=== PATIENT | female | born 1990 | race Caucasian/White ===

== ENCOUNTER 2018-03-24 19:04 | Emergency (ER) | payer SELFPAY ==
[2018-03-24] MEDS ORDERED: HALOPERIDOL LACTATE INJ 5 MG/1 ML VIAL IM ONE (20:09)
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
[2018-03-24 20:22] LABS: ABSOLUTE BASOPHILS # (AUTO) 0.1 10^3/uL (0.0-0.2); ABSOLUTE EOSINOPHILS # (AUTO) 0.1 10^3/uL (0.0-0.6); ABSOLUTE MONOCYTES (AUTO) 0.8 10^3/uL (0.1-1.4); ABSOLUTE NEUT (AUTO) 6.8 10^3/uL (1.7-8.2); BASOPHILS % (AUTO) 0.6 % (0-2); EOSINOPHILS % (AUTO) 0.8 % (0-6); HEMATOCRIT 40.9 % (36.0-47.0); LYMPHOCYTES % (AUTO) 20.5 % (13-45); MEAN CORPUSCULAR HEMOGLOBIN 32.3 pg (27.0-33.4); MEAN CORPUSCULAR HGB CONC 34.2 g/dL (32.0-36.0); MEAN CORPUSCULAR VOLUME 94 fl (80-97); MONOCYTES % (AUTO) 8.1 % (3-13); PLATELET COUNT 253 10^3/uL (150-450); RED BLOOD COUNT 4.33 10^6/uL (3.72-5.28); RED CELL DISTRIBUTION WIDTH 13.9 % (11.5-14.0); TOTAL CELLS COUNTED % (AUTO) 100 %; WHITE BLOOD COUNT 9.7 10^3/uL (4.0-10.5)
[2018-03-24 20:43] LABS: ALANINE AMINOTRANSFERASE 27 U/L (9-52); ALKALINE PHOSPHATASE 81 U/L (38-126); ANION GAP 14 (5-19); ASPARTATE AMINO TRANSFERASE 23 U/L (14-36); BILIRUBIN,DIRECT 0.2 mg/dL (0.0-0.4); BILIRUBIN,TOTAL 0.9 mg/dL (0.2-1.3); BLOOD UREA NITROGEN 16 mg/dL (7-20); CARBON DIOXIDE 19 mmol/L (22-30); CHLORIDE 106 mmol/L (98-107); CREATINE KINASE 151 U/L (30-135); GLUCOSE 91 mg/dL (75-110); POTASSIUM 4.2 mmol/L (3.6-5.0); SODIUM 138.9 mmol/L (137-145); TOTAL PROTEIN 7.4 g/dL (6.3-8.2)
[2018-03-24 20:44] LABS: ACETAMINOPHEN < 10 ug/mL (10-30); ALCOHOL < 10 mg/dL (NONE DETECTED); SALICYLATE < 1.0 mg/dL (2.0-20.0)
[2018-03-24 21:18] VITALS: BP 124/77
[2018-03-25 02:42] LABS: APPEARANCE,URINE SLIGHTLY-CLOUDY; BILIRUBIN,URINE SMALL (NEGATIVE); COLOR,URINE DARK YELLOW; GLUCOSE, URINE NEGATIVE (NEGATIVE); KETONES,URINE 20 mg/dL (NEGATIVE); LEUKOCYTE ESTERASE,URINE NEGATIVE (NEGATIVE); NITRITE,URINE NEGATIVE (NEGATIVE); PROTEIN,URINE 100 mg/dL (NEGATIVE); URINE SPECIFIC GRAVITY 1.035
--- NOTE | 2018-03-25 02:42 | RADIOLOGY REPORT (SQ) ---
EXAM DESCRIPTION: CT HEAD WITHOUT IV CONTRAST COMPLETED DATE/TME: 03/25/2018 01:49 CLINICAL HISTORY: 27 years Female, aktered mental status COMPARISON: None. TECHNIQUE: No contrast. Coronal and sagittal reformat. This exam was performed according to our departmental dose-optimization program, which includes automated exposure control, adjustment of the mA and/or kV according to patient size and/or use of iterative reconstruction technique. FINDINGS: No hemorrhage or infarct. No mass, mass effect, or midline shift. Brain and extra-axial structures appear intact. IMPRESSION: Normal CT of the head.
[2018-03-25 03:11] LABS: URINE AMPHETAMINES SCREEN NEGATIVE; URINE BARBITURATES SCREEN NEGATIVE; URINE BENZODIAZEPINES SCREEN NEGATIVE; URINE MARIJUANA (THC) SCREEN NEGATIVE; URINE METHADONE SCREEN NEGATIVE; URINE PHENCYCLIDINE SCREEN NEGATIVE
[2018-03-25 03:18] LABS: URINE COCAINE SCREEN NEGATIVE
--- NOTE | 2018-03-25 07:55 | EKG REPORT ---
SEVERITY:- BORDERLINE ECG - SINUS RHYTHM BORDERLINE T ABNORMALITIES, INFERIOR LEADS : Confirmed by: Keegan Blake MD 25-Mar-2018 07:54:12
--- NOTE | 2018-03-25 09:18 | PSYCHOLOGICAL NOTE ---
Psych Note - Psych Note Date seen by psych provider: 03/25/18 Time seen by psych provider: 07:35 Psych Note: Reason for Consult: AMS Patient's mother, Jennifer ([phone])- per chart review Patient has another chart [id number] Patient was seen by the clinician and department during her 01/18/2018 and 09/16/2017 ED visits. Patient's presentation is similar to previous presentation. Patient is unable or unwilling to engage and demonstrates mood liability (ie moves between crying, smiling or odd times of random laughing, flat affect). Patient does report understanding she is in [facility] and states she "thinks she was here a few months ago." Patient does not make eye contact and when she does speak there is a noted significant delay in responses with never quiet speech; difficult to hear. Patient shuts down when asked her name and starts crying. Clinician notes the patient was restrained (from approximately 1am until 5am) after attempting to elope. Patient was not violent at anytime. Medication Recommendation from [facility]'s contracted psychiatric prescriber, Dr. Joie MD included: 1. Please add Zyprexa 10 mg twice daily 2. please continue Cogentin 1 mg daily Diagnosis: 296.80 (F31.9) Unspecified Bipolar Related Disorder 309.81 (F43.10) Post Traumatic Stress Disorder by History Impression/plan: Patient is recommended for IVC. Patient has had previous events of similar presentation; this is not her baseline. Medication recommendations have been provided. Patient has been accepted by [facility]; transportation was requested. Dr. Su was consulted and care management of this patient; attending physicians in agreement with her conditions and disposition.
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
== END 2018-03-25 12:29 ==
LOC: ER 19:04 → EDBD 19:04 → ER 03-25 12:29
DX: F23 Brief psychotic disorder (principal)
CPT/HCPCS: 93005; 99285; 96372; 36415; 82375; 80307 ×4; 82550; 84703; 85025; 80053; 81001; 70450; 93010; J1630

== ENCOUNTER 2018-09-15 18:23 | Emergency (ER) | payer SELFPAY ==
[2018-09-15] MEDS ORDERED: BENZTROPINE MESYLATE 1 MG TABLET PO ONE (19:07)
[2018-09-15] MEDS: OLANZAPINE 5 MG TAB.RAPDIS PO ONE (19:40)
[2018-09-15 19:41] LABS: ABSOLUTE BASOPHILS # (AUTO) 0.1 10^3/uL (0.0-0.2); ABSOLUTE LYMPHOCYTES (AUTO) 1.1 10^3/uL (0.5-4.7); ABSOLUTE MONOCYTES (AUTO) 0.8 10^3/uL (0.1-1.4); ABSOLUTE NEUT (AUTO) 8.9 10^3/uL (1.7-8.2); BASOPHILS % (AUTO) 0.5 % (0-2); EOSINOPHILS % (AUTO) 0.4 % (0-6); HEMATOCRIT 37.1 % (36.0-47.0); HEMOGLOBIN 12.7 g/dL (12.0-15.5); LYMPHOCYTES % (AUTO) 10.2 % (13-45); MEAN CORPUSCULAR HEMOGLOBIN 32.3 pg (27.0-33.4); MEAN CORPUSCULAR HGB CONC 34.2 g/dL (32.0-36.0); MEAN CORPUSCULAR VOLUME 95 fl (80-97); MONOCYTES % (AUTO) 7.3 % (3-13); PLATELET COUNT 260 10^3/uL (150-450); RED BLOOD COUNT 3.93 10^6/uL (3.72-5.28); RED CELL DISTRIBUTION WIDTH 14.9 % (11.5-14.0); SEGMENTED NEUTROPHILS % (AUTO) 81.6 % (42-78); TOTAL CELLS COUNTED % (AUTO) 100 %
[2018-09-15 20:01] LABS: ALANINE AMINOTRANSFERASE 13 U/L (9-52); ALBUMIN 4.8 g/dL (3.5-5.0); ALKALINE PHOSPHATASE 65 U/L (38-126); ANION GAP 10 (5-19); ASPARTATE AMINO TRANSFERASE 20 U/L (14-36); BILIRUBIN,DIRECT 0.3 mg/dL (0.0-0.4); BILIRUBIN,TOTAL 0.5 mg/dL (0.2-1.3); BLOOD UREA NITROGEN 13 mg/dL (7-20); CARBON DIOXIDE 23 mmol/L (22-30); CHLORIDE 109 mmol/L (98-107); GLUCOSE 135 mg/dL (75-110); POTASSIUM 3.9 mmol/L (3.6-5.0); TOTAL PROTEIN 7.4 g/dL (6.3-8.2)
[2018-09-15 20:03] LABS: ACETAMINOPHEN < 10 ug/mL (10-30); ALCOHOL < 10 mg/dL (NONE DETECTED); SALICYLATE < 1.0 mg/dL (2.0-20.0)
--- NOTE | 2018-09-15 20:33 | EKG REPORT ---
SEVERITY:- BORDERLINE ECG - SINUS RHYTHM PROBABLE LEFT ATRIAL ABNORMALITY : Confirmed by: Randall Mejias 15-Sep-2018 20:32:23
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
[2018-09-16 04:52] LABS: APPEARANCE,URINE SLIGHTLY-CLOUDY; BILIRUBIN,URINE NEGATIVE (NEGATIVE); COLOR,URINE AMBER; GLUCOSE, URINE NEGATIVE (NEGATIVE); KETONES,URINE 20 mg/dL (NEGATIVE); LEUKOCYTE ESTERASE,URINE TRACE (NEGATIVE); NITRITE,URINE NEGATIVE (NEGATIVE); PROTEIN,URINE 100 mg/dL (NEGATIVE); URINE SPECIFIC GRAVITY 1.034
[2018-09-16 05:08] LABS: URINE AMPHETAMINES SCREEN NEGATIVE; URINE BENZODIAZEPINES SCREEN NEGATIVE; URINE COCAINE SCREEN NEGATIVE; URINE MARIJUANA (THC) SCREEN NEGATIVE; URINE METHADONE SCREEN NEGATIVE; URINE PHENCYCLIDINE SCREEN NEGATIVE
[2018-09-16 05:09] LABS: URINE BARBITURATES SCREEN NEGATIVE
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
--- NOTE | 2018-09-16 11:01 | ER Document Report ---
Doctor's Note Notes: 09/16/18 10:59 Rounds: Chart reviewed and patient interviewed. Initially patient would not talk to me, but then opened up and began to answer questions. Patient has a history of bipolar disorder and PTSD. Brought in because she is been walking and out of moving traffic. Reportedly has not slept for a couple of days. Laly decker has been seen here previously for similar presentation. Vital signs are all normal. Lab studies are normal. Patient appears to be medically stable for transfer or discharge. Pamela Winkler MD 09/16/18 16:23 Patient has departed the ED. Law enforcement came to pick her up to transfer her. Patient was ambulatory. In no distress. Patient appeared to be medically stable for transfer. Pamela Winkler MD
[2018-09-16] MEDS ORDERED: OLANZAPINE 5 MG TAB.RAPDIS PO ONE (14:55)
[2018-09-16 15:37] VITALS: BP 105/78
[2018-09-17 08:37] LABS: HEPATITS B SURFACE ANTIGEN Negative (Negative)
[2018-09-17 19:01] LABS: HEPATITIS C VIRUS ANTIBODY >11.0 s/co ratio (0.0-0.9)
== END 2018-09-16 14:59 ==
LOC: ER 18:23
DX: R41.82 Altered mental status, unspecified (principal); F31.9 Bipolar disorder, unspecified; F43.10 Post-traumatic stress disorder, unspecified
CPT/HCPCS: 93005; 99285; 36415; 80307 ×4; 82140; 84703; 85025; 80053; 81001; 86701; 80074; 93010; J3490 ×2

== ENCOUNTER 2018-10-06 12:12 | Emergency (ER) | payer SELFPAY ==
[2018-10-06 13:38] LABS: ABSOLUTE BASOPHILS # (AUTO) 0.1 10^3/uL (0.0-0.2); ABSOLUTE EOSINOPHILS # (AUTO) 0.1 10^3/uL (0.0-0.6); ABSOLUTE LYMPHOCYTES (AUTO) 1.7 10^3/uL (0.5-4.7); ABSOLUTE MONOCYTES (AUTO) 0.7 10^3/uL (0.1-1.4); BASOPHILS % (AUTO) 0.9 % (0-2); EOSINOPHILS % (AUTO) 0.8 % (0-6); HEMATOCRIT 39.1 % (36.0-47.0); HEMOGLOBIN 13.4 g/dL (12.0-15.5); MEAN CORPUSCULAR HGB CONC 34.3 g/dL (32.0-36.0); MEAN CORPUSCULAR VOLUME 93 fl (80-97); MONOCYTES % (AUTO) 6.2 % (3-13); PLATELET COUNT 337 10^3/uL (150-450); RED BLOOD COUNT 4.19 10^6/uL (3.72-5.28); SEGMENTED NEUTROPHILS % (AUTO) 76.1 % (42-78); TOTAL CELLS COUNTED % (AUTO) 100 %; WHITE BLOOD COUNT 10.5 10^3/uL (4.0-10.5)
--- NOTE | 2018-10-06 13:39 | ER Document Report ---
ED General - General Chief Complaint: Psych Problem Stated Complaint: IVC Time Seen by Provider: 10/06/18 13:22 Mode of Arrival: Stretcher Information source: Law Enforcement, Emergency Med Personnel, [facility] Records Cannot obtain history due to: Uncooperative Notes: HPI; 28-year-old female with bipolar disorder, PTSD presents in police custody after being found wandering in traffic and appearing confused. Per the officer who has accompanied the patient she states that the patient has refused to give her any information. Per the IVC taken out by Shi Zapata it is reported that the patient is having hallucinations and saying that she is possess. Per the IVC patient has not been taking her medications. Patient will not make eye contact with me, answer any questions and is pacing around the room. Psych note; Pt. presents to the ED with CC of hallucinations and mental instability. Per [facility] pt. was wandering in the road at their arrival. Pt. is RXed psych medications to which she has not been taking. Pt. swaying back and forth on her feet and bouncing her knees. Pt. is breathing e/u and in NAD at this time. Pt. does not answer questions when directly asked by deputy. Patient refused to engage with clinician. This patient was see by this clinici an and department during her 03/26/2016, 01/15/2017,09/16/2017, 03/25/2018 and 09/16/2018 ED visits. Patient's presentation is similar to previous presentation. Patient was sent inpatient psychiatric treatment this year to [facility] 09/16/2018 and [facility] on 03/25/2018. TRAVEL OUTSIDE OF THE [place] IN LAST 30 DAYS: No - HPI Onset: Just prior to arrival - Related Data Allergies/Adverse Reactions: No Known Allergies Allergy (Verified 09/19/18 12:59) Past Medical History - General Information source: Law Enforcement, [facility] Records Cannot obtain history due to: Uncooperative - Social History Smoking Status: Unknown if Ever Smoked Family History: None, Other Patient has suicidal ideation: Yes Patient has homicidal ideation: Yes Renal/ Medical History: Denies: Hx Peritoneal Dialysis - Immunizations Immunizations up to date: Yes Hx Diphtheria, Pertussis, Tetanus Vaccination: Yes Review of Systems - Review of Systems -: Yes ROS unobtainable due to patient's medical condition Physical Exam - Vital signs Vitals: Temp Pulse Resp BP Pulse Ox 98.1 F 67 18 130/89 H 100 10/06/18 12:18 10/06/18 12:18 10/06/18 12:18 10/06/18 12:18 10/06/18 12:18 - Notes Notes: PHYSICAL EXAMINATION: GENERAL: Unkept, tearful HEAD: Atraumatic, normocephalic. EYES: Pupils equal round and reactive to light, extraocular movements intact, conjunctiva are normal. ENT: Nares patent, oropharynx clear without exudates. Moist mucous membranes. NECK: Normal range of motion, supple without lymphadenopathy LUNGS: Breath sounds clear to auscultation bilaterally and equal. No wheezes rales or rhonchi. HEART: Regular rate and rhythm without murmurs ABDOMEN: Soft, nontender, nondistended abdomen. No guarding, no rebound. No masses appreciated. Female : deferred Musculoskeletal: Normal range of motion, no pitting or edema. No cyanosis. NEUROLOGICAL: Alert PSYCH: Tearful, fidgeting, does not make eye contact SKIN: Multiple healed linear scars of the forearms bilaterally Course - Re-evaluation Re-evalutation: 10/06/18 17:43 Laboratory 10/06/18 10/06/18 10/06/18 13:19 13:19 13:19 WBC 10.5 RBC 4.19 Hgb 13.4 Hct 39.1 MCV 93 MCH 32.0 MCHC 34.3 RDW 14.0 Plt Count 337 Seg Neutrophils % 76.1 Lymphocytes % 16.0 Monocytes % 6.2 Eosinophils % 0.8 Basophils % 0.9 Absolute Neutrophils 8.0 Absolute Lymphocytes 1.7 Absolute Monocytes 0.7 Absolute Eosinophils 0.1 Absolute Basophils 0.1 Sodium 140.1 Potassium 4.1 Chloride 103 Carbon Dioxide 24 Anion Gap 13 BUN 9 Creatinine 0.69 Est GFR ( Amer) > 60 Est GFR (Non-Af Amer) > 60 Glucose 91 Calcium 10.0 Total Bilirubin 0.8 Direct Bilirubin 0.4 Neonat Total Bilirubin Not Reportable Neonat Direct Bilirubin Not Reportable Neonat Indirect Bili Not Reportable AST 24 ALT 14 Alkaline Phosphatase 82 Total Protein 7.8 Albumin 5.1 H Serum HCG, Qual NEGATIVE Salicylates < 1.0 L Acetaminophen < 10 L Serum Alcohol < 10 Temp Pulse Resp BP Pulse Ox 98.1 F 67 18 130/89 H 100 10/06/18 12:18 10/06/18 12:18 10/06/18 12:18 10/06/18 12:18 10/06/18 12:18 HPI; 28-year-old female with bipolar disorder, PTSD presents in police custody after being found wandering in traffic and appearing confused. Per the officer who has accompanied the patient she states that the patient has refused to give her any information. Per the IVC taken out by Shi Zapata it is reported that the patient is having hallucinations and saying that she is possess. Per the IVC patient has not been taking her medications. Patient will not make eye contact with me, answer any questions and is pacing around the room. Vital signs reviewed and within normal limits. Patient is completely uncooperative. Psych note; Pt. presents to the ED with CC of hallucinations and mental instability. Per [facility] pt. was wandering in the road at their arrival. Pt. is RXed psych medications to which she has not been taking. Pt. swaying back and forth on her feet and bouncing her knees. Pt. is breathing e/u and in NAD at this time. Pt. does not answer questions when directly asked by deputy. Patient refused to engage with clinician. This patient was see by this clinician and department during her 03/26/2016, 01/15/2017,09/16/2017, 03/25 and 09/16/2018 ED visits. Patient's presentation is similar to previous presentation. Patient was sent inpatient psychiatric treatment this year to [facility] 09/16/2018 and [facility] on 03/25/2018. 10/06/18 17:54 Medication recommendations include Zyprexa 10 mg twice daily and Cogentin 1 mg daily. Behavioral health to reevaluate tomorrow. - Vital Signs Vital signs: Temp Pulse Resp BP Pulse Ox 98.1 F 67 18 130/89 H 100 10/06/18 12:18 10/06/18 12:18 10/06/18 12:18 10/06/18 12:18 10/06/18 12:18 - Laboratory Result Diagrams: 10/06/18 13:19 10/06/18 13:19 Laboratory results interpreted by me: 10/06/18 13:19 Albumin 5.1 H Salicylates < 1.0 L Acetaminophen < 10 L Discharge - Discharge Clinical Impression: Hallucination Bipolar disorder Qualifiers: Active/Remission status: currently active Current bipolar episode type: mixed Current episode severity: unspecified Qualified Code(s): F31.60 - Bipolar disorder, current episode mixed, unspecified Condition: Good Disposition: OTHER Forms: Elevated Blood Pressure
[2018-10-06 14:02] LABS: ALBUMIN 5.1 g/dL (3.5-5.0); ALKALINE PHOSPHATASE 82 U/L (38-126); ANION GAP 13 (5-19); ASPARTATE AMINO TRANSFERASE 24 U/L (14-36); BILIRUBIN,DIRECT 0.4 mg/dL (0.0-0.4); BILIRUBIN,TOTAL 0.8 mg/dL (0.2-1.3); BLOOD UREA NITROGEN 9 mg/dL (7-20); CARBON DIOXIDE 24 mmol/L (22-30); CHLORIDE 103 mmol/L (98-107); GLUCOSE 91 mg/dL (75-110); POTASSIUM 4.1 mmol/L (3.6-5.0); TOTAL PROTEIN 7.8 g/dL (6.3-8.2)
[2018-10-06 14:06] LABS: ACETAMINOPHEN < 10 ug/mL (10-30); ALCOHOL < 10 mg/dL (NONE DETECTED); SALICYLATE < 1.0 mg/dL (2.0-20.0)
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
[2018-10-06] MEDS ORDERED: OLANZAPINE INJ/PF 10 MG SDV IM ONE (14:39)
[2018-10-06] MEDS ORDERED: BENZTROPINE MESYLATE INJ 2 MG/2 ML AMPULE IM SCH (14:45)
[2018-10-06] MEDS ORDERED: BENZTROPINE MESYLATE INJ 2 MG/2 ML AMPULE IM ONE (15:30)
[2018-10-07 05:44] LABS: APPEARANCE,URINE CLEAR; BILIRUBIN,URINE SMALL (NEGATIVE); COLOR,URINE AMBER; GLUCOSE, URINE NEGATIVE (NEGATIVE); KETONES,URINE 20 mg/dL (NEGATIVE); LEUKOCYTE ESTERASE,URINE NEGATIVE (NEGATIVE); NITRITE,URINE NEGATIVE (NEGATIVE); PROTEIN,URINE 30 mg/dL (NEGATIVE); URINE SPECIFIC GRAVITY 1.026
[2018-10-07 06:01] LABS: URINE AMPHETAMINES SCREEN NEGATIVE; URINE BARBITURATES SCREEN NEGATIVE; URINE BENZODIAZEPINES SCREEN NEGATIVE; URINE COCAINE SCREEN NEGATIVE; URINE MARIJUANA (THC) SCREEN NEGATIVE; URINE METHADONE SCREEN NEGATIVE; URINE PHENCYCLIDINE SCREEN NEGATIVE
--- NOTE | 2018-10-07 07:40 | PSYCHOLOGICAL NOTE ---
Psych Note - Psych Note Date seen by psych provider: 10/07/18 Psych Note: Reason for Consult: AMS Patient's mother, Jennifer ([phone])- per chart review Pt. presents to the ED with CC of hallucinations and mental instability. Per [facility] pt. was wandering in the road at their arrival. Pt. is RXed psych medications to which she has not been taking. Pt. swaying back and forth on her feet and bouncing her knees. Pt. is breathing e/u and in NAD at this time. Pt. does not answer questions when directly asked by deputy. Check in with patient Medication Recommendation from [facility]'s contracted psychiatric prescriber, Dr. Joie MD included: 1. Zyprexa 10 mg twice daily 2. Cogentin 1 mg daily Diagnosis: 296.80 (F31.9) Unspecified Bipolar Related Disorder per history 309.81 (F43.10) Post Traumatic Stress Disorder by History Impression/plan: Patient is recommended for continued IVC. Patient has had previous events of similar presentation; this is not her baseline. Medication recommendations have been provided. Dr. Su was consulted and care management of this patient; attending physicians in agreement with her conditions and disposition.
[2018-10-07 09:56] VITALS: BP 118/69
--- NOTE | 2018-10-07 10:23 | ER Document Report ---
Doctor's Note Notes: 10/07/18 10:22 Rounds: Chart reviewed and patient interviewed briefly. After questioning the patient a couple of times, she stopped speaking. This patient has been seen here previously for similar presentations and also will not communicate. History of bipolar disorder. Apparently out of her medications. Was found wal manan in traffic, although the patient says she was only in the traffic median. Lab studies are all essentially normal. Vital signs are all essentially normal. Patient appears to be medically stable for transfer or discharge. Pamela Winkler MD 10/07/18 12:22 Transport is here to take the patient. She is ambulatory without difficulty. Still noncommunicative. Patient is stable for transfer. Pamela Winkler MD
--- NOTE | 2018-10-08 10:30 | EKG REPORT ---
SEVERITY:- NORMAL ECG - SINUS RHYTHM : Confirmed by: Randall Mejias 08-Oct-2018 10:30:03
== END 2018-10-07 12:24 | disposition other institution (70) ==
LOC: ER 12:12
DX: R44.3 Hallucinations, unspecified (principal); F31.60 Bipolar disorder, current episode mixed, unspecified; F43.10 Post-traumatic stress disorder, unspecified; Z91.14 Patient's other noncompliance with medication regimen; R45.851 Suicidal ideations; R45.850 Homicidal ideations
CPT/HCPCS: 93005; 99285; 96372; 36415; 80307 ×4; 84703; 85025; 80053; 81001; 93010; J0515

== ENCOUNTER 2019-02-16 16:18 | Emergency (ER) | payer SELFPAY ==
[2019-02-16 17:45] LABS: ABSOLUTE BASOPHILS # (AUTO) 0.1 10^3/uL (0.0-0.2); ABSOLUTE EOSINOPHILS # (AUTO) 0.1 10^3/uL (0.0-0.6); ABSOLUTE LYMPHOCYTES (AUTO) 1.8 10^3/uL (0.5-4.7); ABSOLUTE MONOCYTES (AUTO) 1.2 10^3/uL (0.1-1.4); BASOPHILS % (AUTO) 0.7 % (0-2); EOSINOPHILS % (AUTO) 0.4 % (0-6); HEMATOCRIT 41.2 % (36.0-47.0); LYMPHOCYTES % (AUTO) 11.9 % (13-45); MEAN CORPUSCULAR HEMOGLOBIN 31.8 pg (27.0-33.4); MEAN CORPUSCULAR HGB CONC 34.1 g/dL (32.0-36.0); MEAN CORPUSCULAR VOLUME 93 fl (80-97); MONOCYTES % (AUTO) 8.2 % (3-13); PLATELET COUNT 264 10^3/uL (150-450); RED BLOOD COUNT 4.41 10^6/uL (3.72-5.28); RED CELL DISTRIBUTION WIDTH 13.4 % (11.5-14.0); SEGMENTED NEUTROPHILS % (AUTO) 78.8 % (42-78); TOTAL CELLS COUNTED % (AUTO) 100 %; WHITE BLOOD COUNT 15.3 10^3/uL (4.0-10.5)
[2019-02-16 18:14] LABS: ALBUMIN 5.1 g/dL (3.5-5.0); ALCOHOL 27 mg/dL (NONE DETECTED); ALKALINE PHOSPHATASE 84 U/L (38-126); ANION GAP 18 (5-19); ASPARTATE AMINO TRANSFERASE 57 U/L (14-36); BILIRUBIN,DIRECT 0.3 mg/dL (0.0-0.4); BILIRUBIN,TOTAL 0.8 mg/dL (0.2-1.3); BLOOD UREA NITROGEN 13 mg/dL (7-20); CALCIUM 9.5 mg/dL (8.4-10.2); CARBON DIOXIDE 20 mmol/L (22-30); CHLORIDE 101 mmol/L (98-107); GLUCOSE 78 mg/dL (75-110); POTASSIUM 3.4 mmol/L (3.6-5.0); TOTAL PROTEIN 8.4 g/dL (6.3-8.2)
[2019-02-16 18:15] LABS: ACETAMINOPHEN < 10 ug/mL (10-30); SALICYLATE < 1.0 mg/dL (2.0-20.0)
--- NOTE | 2019-02-16 19:36 | ER Document Report ---
ED Psych Disorder / Suicide - General Chief Complaint: Psych Problem Stated Complaint: PSYCH Time Seen by Provider: 02/16/19 17:25 Notes: 28-year-old female with history of bipolar schizophrenia and multiple personality disorders presents for erratic behavior and self-harm/SI. Patient is not cooperative with history and exam at this time. HPI taken from medical records as reported by mother. Patient has been displaying erratic behavior s niharika this morning and took a circular saw and was threatening to hurt herself with that. EMS also reports that patient was cutting herself no deep lacerations noted. TRAVEL OUTSIDE OF THE [place] IN LAST 30 DAYS: No - Related Data Allergies/Adverse Reactions: No Known Allergies Allergy (Verified 09/19/18 12:59) Past Medical History - Social History Smoking Status: Current Every Day Smoker Chew tobacco use (# tins/day): No Frequency of alcohol use: None Drug Abuse: None Family History: None, Other Patient has suicidal ideation: Yes Patient has homicidal ideation: Yes Renal/ Medical History: Denies: Hx Peritoneal Dialysis - Immunizations Immunizations up to date: Yes Hx Diphtheria, Pertussis, Tetanus Vaccination: Yes Review of Systems - Review of Systems Notes: Review of symptoms limited by patient's noncooperation Physical Exam - Vital signs Vitals: Temp Pulse Resp BP Pulse Ox 97.9 F 128 H 22 H 97/62 L 96 02/16/19 17:05 02/16/19 17:05 02/16/19 17:05 02/16/19 17:05 02/16/19 17:05 - Notes Notes: GENERAL: Well-appearing, well-nourished and in no acute distress. HEAD: Atraumatic, normocephalic. EYES: Extraocular movements intact, sclera anicteric, conjunctiva are normal. NEUROLOGICAL: Cranial nerves II through XII grossly intact. Normal speech, normal gait. PSYCH: Flat affect, patient uncooperative with exam Course - Re-evaluation Re-evalutation: Patient is medically cleared. Patient is awaiting psychiatric evaluation. - Vital Signs Vital signs: Temp Pulse Resp BP Pulse Ox 98.5 F 93 22 H 115/76 98 02/17/19 05:22 02/17/19 05:22 02/16/19 17:05 02/17/19 05:22 02/17/19 05:22 - Laboratory Result Diagrams: 02/16/19 17:30 02/16/19 17:30 Laboratory results interpreted by me: 02/16/19 02/16/19 17:30 17:30 WBC 15.3 H Lymph % (Auto) 11.9 L Absolute Neuts (auto) 12.0 H Seg Neutrophils % 78.8 H Potassium 3.4 L Carbon Dioxide 20 L AST 57 H Total Protein 8.4 H Albumin 5.1 H Salicylates < 1.0 L Acetaminophen < 10 L Discharge - Discharge Clinical Impression: Suicidal ideation Condition: Stable Disposition: PSYCH HOSP/UNIT
--- NOTE | 2019-02-16 19:38 | PSYCHOLOGICAL NOTE ---
Psych Note - Psych Note Date seen by psych provider: 02/16/19 Time seen by psych provider: 19:30 Psych Note: Patient is known to behavioral health. Medication Recommendation from [facility]'s contracted psychiatric prescriber, Dr. Joie MD included: 1. Zyprexa 10 mg twice daily 2. Cogentin 1 mg daily Impression/Plan: Patient will be evaluated tomorrow, 02/17/2019. Georges was consulted on the care and management of this patient; attending physician is in agreement with recommendations and disposition.
[2019-02-16] MEDS: BENZTROPINE MESYLATE INJ 2 MG/2 ML AMPULE IM SCH (20:26)
[2019-02-16] MEDS: OLANZAPINE INJ/PF 10 MG SDV IM SCH (20:26)
[2019-02-17 05:29] VITALS: BP 115/76
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
[2019-02-17] MEDS: BENZTROPINE MESYLATE INJ 2 MG/2 ML AMPULE IM SCH (10:06)
[2019-02-17] MEDS: OLANZAPINE INJ/PF 10 MG SDV IM SCH (10:07)
[2019-02-17 14:17] LABS: APPEARANCE,URINE SLIGHTLY-CLOUDY; BILIRUBIN,URINE NEGATIVE (NEGATIVE); GLUCOSE, URINE NEGATIVE (NEGATIVE); KETONES,URINE 20 mg/dL (NEGATIVE); LEUKOCYTE ESTERASE,URINE NEGATIVE (NEGATIVE); NITRITE,URINE NEGATIVE (NEGATIVE); PROTEIN,URINE 30 mg/dL (NEGATIVE); URINE SPECIFIC GRAVITY 1.025
[2019-02-17 14:18] LABS: COLOR,URINE YELLOW
--- NOTE | 2019-02-17 14:24 | ER Document Report ---
Doctor's Note Notes: 02/17/19 14:24 patient is calm and walking around unit with blanket calling it his "baby." Patient toxic, well-appearing. Patient is easily directable by staff. Patient is currently awaiting placement per psychiatric team.
[2019-02-17 14:32] LABS: URINE AMPHETAMINES SCREEN NEGATIVE; URINE BARBITURATES SCREEN NEGATIVE; URINE BENZODIAZEPINES SCREEN UNCONFIRMED POSITIVE; URINE COCAINE SCREEN NEGATIVE; URINE MARIJUANA (THC) SCREEN NEGATIVE; URINE METHADONE SCREEN NEGATIVE; URINE PHENCYCLIDINE SCREEN NEGATIVE
--- NOTE | 2019-02-17 19:30 | EKG REPORT ---
SEVERITY:- ABNORMAL ECG - SINUS RHYTHM LEFT ATRIAL ABNORMALITY BORDERLINE T ABNORMALITIES, INFERIOR LEADS : Confirmed by: Naomi Monahan MD 17-Feb-2019 19:29:14
== END 2019-02-17 16:56 ==
LOC: ER 16:18
DX: F20.9 Schizophrenia, unspecified (principal); F44.81 Dissociative identity disorder; R45.851 Suicidal ideations; F17.200 Nicotine dependence, unspecified, uncomplicated; F31.9 Bipolar disorder, unspecified; F43.10 Post-traumatic stress disorder, unspecified
CPT/HCPCS: 93005; 99285; 96372; 36415; 80307 ×4; 84703; 85025; 80053; 81001; 93010; J0515 ×2

== ENCOUNTER 2019-03-22 23:41 | Emergency (ER) | payer SELFPAY ==
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
[2019-03-23 01:06] LABS: ABSOLUTE BASOPHILS # (AUTO) 0.1 10^3/uL (0.0-0.2); ABSOLUTE EOSINOPHILS # (AUTO) 0.2 10^3/uL (0.0-0.6); ABSOLUTE LYMPHOCYTES (AUTO) 2.9 10^3/uL (0.5-4.7); ABSOLUTE MONOCYTES (AUTO) 0.4 10^3/uL (0.1-1.4); ABSOLUTE NEUT (AUTO) 3.4 10^3/uL (1.7-8.2); BASOPHILS % (AUTO) 0.8 % (0-2); EOSINOPHILS % (AUTO) 2.4 % (0-6); HEMATOCRIT 39.1 % (36.0-47.0); HEMOGLOBIN 13.5 g/dL (12.0-15.5); LYMPHOCYTES % (AUTO) 41.7 % (13-45); MEAN CORPUSCULAR HEMOGLOBIN 32.4 pg (27.0-33.4); MEAN CORPUSCULAR HGB CONC 34.6 g/dL (32.0-36.0); MEAN CORPUSCULAR VOLUME 94 fl (80-97); MONOCYTES % (AUTO) 6.4 % (3-13); PLATELET COUNT 254 10^3/uL (150-450); RED BLOOD COUNT 4.17 10^6/uL (3.72-5.28); RED CELL DISTRIBUTION WIDTH 13.8 % (11.5-14.0); SEGMENTED NEUTROPHILS % (AUTO) 48.7 % (42-78); TOTAL CELLS COUNTED % (AUTO) 100 %; WHITE BLOOD COUNT 7.1 10^3/uL (4.0-10.5)
[2019-03-23 01:44] LABS: ALBUMIN 4.2 g/dL (3.5-5.0); ALCOHOL 146 mg/dL (NONE DETECTED); ALKALINE PHOSPHATASE 66 U/L (38-126); ANION GAP 11 (5-19); ASPARTATE AMINO TRANSFERASE 21 U/L (14-36); BILIRUBIN,TOTAL 0.5 mg/dL (0.2-1.3); BLOOD UREA NITROGEN 10 mg/dL (7-20); CALCIUM 9.2 mg/dL (8.4-10.2); CARBON DIOXIDE 24 mmol/L (22-30); CHLORIDE 105 mmol/L (98-107); GLUCOSE 89 mg/dL (75-110); POTASSIUM 4.2 mmol/L (3.6-5.0); TOTAL PROTEIN 6.8 g/dL (6.3-8.2)
[2019-03-23 01:45] LABS: ACETAMINOPHEN < 10 ug/mL (10-30); SALICYLATE < 1.0 mg/dL (2.0-20.0)
[2019-03-23 04:48] LABS: APPEARANCE,URINE SLIGHTLY-CLOUDY; BILIRUBIN,URINE NEGATIVE (NEGATIVE); COLOR,URINE YELLOW; GLUCOSE, URINE NEGATIVE (NEGATIVE); KETONES,URINE NEGATIVE (NEGATIVE); LEUKOCYTE ESTERASE,URINE NEGATIVE (NEGATIVE); NITRITE,URINE NEGATIVE (NEGATIVE); PROTEIN,URINE NEGATIVE (NEGATIVE); URINE SPECIFIC GRAVITY 1.006; UROBILINOGEN,URINE NEGATIVE mg/dL (<2.0)
[2019-03-23 05:05] LABS: URINE AMPHETAMINES SCREEN NEGATIVE; URINE BARBITURATES SCREEN NEGATIVE; URINE BENZODIAZEPINES SCREEN NEGATIVE; URINE COCAINE SCREEN NEGATIVE; URINE MARIJUANA (THC) SCREEN NEGATIVE; URINE METHADONE SCREEN NEGATIVE; URINE PHENCYCLIDINE SCREEN NEGATIVE
[2019-03-23] MEDS ORDERED: LORAZEPAM INJ 2 MG/1 ML VIAL IM ONE (07:00)
[2019-03-23] MEDS ORDERED: ZIPRASIDONE MESYLATE INJ/PF 20 MG SDV IM ONE (07:00)
--- NOTE | 2019-03-23 09:20 | EKG REPORT ---
SEVERITY:- NORMAL ECG - SINUS RHYTHM : Confirmed by: Randall Mejias 23-Mar-2019 09:18:38
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
--- NOTE | 2019-03-23 12:10 | ER Document Report ---
Doctor's Note Notes: 03/23/19 12:08 Chart reviewed patient rounded on. Patient is laying in the bed with her eyes open. She will not talk with me. Not answering any questions. PHYSICAL EXAMINATION: GENERAL: Well-appearing and in no acute distress HEAD: Atraumatic, normocephalic. EYES: extraocular movements intact, sclera anicteric, conjunctiva are normal. ENT: nares patent, NECK: Normal range of motion, supple LUNGS: Respiratory rate even unlabored HEART: Regular rate EXTREMITIES: Normal range of motion NEUROLOGICAL: Cranial nerves grossly intact. PSYCH: calm SKIN: Warm, Dry 03/23/19 15:17 Patient at the nursing station asking for something for anxiety. Consulted with mental health Sam panchal.
[2019-03-23] MEDS ORDERED: BENZTROPINE MESYLATE 1 MG TABLET PO SCH (15:15)
[2019-03-23] MEDS ORDERED: OLANZAPINE 5 MG TABLET PO SCH (15:15)
--- NOTE | 2019-03-23 15:34 | ER Document Report ---
Doctor's Note Notes: 03/23/19 09:00 Chart reviewed patient rounded on patient refusing to talk with me. She is just lying in bed staring straight ahead. PHYSICAL EXAMINATION: GENERAL: Well-appearing and in no acute distress HEAD: Atraumatic, normocephalic. EYES: Pupils equal round extraocular movements intact, sclera anicteric, conjunctiva are normal. ENT: nares patent, Moist mucous membranes. NECK: Normal range of motion, supple LUNGS: Respiratory rate even unlabored HEART: regular rate EXTREMITIES: Normal range of motion NEUROLOGICAL: Cranial nerves grossly intact PSYCH:non verbal refuses to speak SKIN: Warm, Dry 03/23/19 15:32 Patient at the nurses desk asking for something for anxiety consulted behavioral health who advised zyprexa & Cogentin p.o. 03/23/19 15:32 Patient refusing p.o. meds once Ativan. Consulted behavioral health who advised IM medications. 03/23/19 20:11 Report given to kyaw MATT.
[2019-03-23] MEDS: BENZTROPINE MESYLATE INJ 2 MG/2 ML AMPULE IM SCH (16:06)
[2019-03-23] MEDS: OLANZAPINE INJ/PF 10 MG SDV IM SCH ×2 (16:06→21:13)
[2019-03-24] MEDS ORDERED: OLANZAPINE INJ/PF 10 MG SDV IM SCH (08:00)
[2019-03-24 09:21] VITALS: BP 103/51
[2019-03-24] MEDS: BENZTROPINE MESYLATE INJ 2 MG/2 ML AMPULE IM SCH (10:03)
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
== END 2019-03-24 14:03 ==
LOC: ER 23:41
DX: R45.6 Violent behavior (principal); Z91.14 Patient's other noncompliance with medication regimen; F10.920 Alcohol use, unspecified with intoxication, uncomplicated
CPT/HCPCS: 93005; 99285; 96372; 36415; 80307 ×4; 84703; 85025; 80053; 81001; 93010; J0515

== ENCOUNTER 2019-05-13 20:52 | Emergency (ER) | payer SELFPAY ==
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
[2019-05-13 22:06] LABS: ABSOLUTE BASOPHILS # (AUTO) 0.1 10^3/uL (0.0-0.2); ABSOLUTE EOSINOPHILS # (AUTO) 0.2 10^3/uL (0.0-0.6); ABSOLUTE LYMPHOCYTES (AUTO) 3.1 10^3/uL (0.5-4.7); ABSOLUTE NEUT (AUTO) 7.9 10^3/uL (1.7-8.2); BASOPHILS % (AUTO) 0.6 % (0-2); EOSINOPHILS % (AUTO) 1.4 % (0-6); HEMATOCRIT 39.8 % (36.0-47.0); HEMOGLOBIN 13.7 g/dL (12.0-15.5); MEAN CORPUSCULAR HEMOGLOBIN 33.1 pg (27.0-33.4); MEAN CORPUSCULAR HGB CONC 34.4 g/dL (32.0-36.0); MEAN CORPUSCULAR VOLUME 96 fl (80-97); MONOCYTES % (AUTO) 8.5 % (3-13); PLATELET COUNT 288 10^3/uL (150-450); RED BLOOD COUNT 4.13 10^6/uL (3.72-5.28); RED CELL DISTRIBUTION WIDTH 14.4 % (11.5-14.0); SEGMENTED NEUTROPHILS % (AUTO) 64.5 % (42-78); TOTAL CELLS COUNTED % (AUTO) 100 %; WHITE BLOOD COUNT 12.2 10^3/uL (4.0-10.5)
[2019-05-13 22:15] LABS: ALBUMIN 4.5 g/dL (3.5-5.0); ALKALINE PHOSPHATASE 83 U/L (38-126); ANION GAP 8 (5-19); ASPARTATE AMINO TRANSFERASE 55 U/L (14-36); BILIRUBIN,TOTAL 0.6 mg/dL (0.2-1.3); BLOOD UREA NITROGEN 15 mg/dL (7-20); CALCIUM 9.6 mg/dL (8.4-10.2); CARBON DIOXIDE 26 mmol/L (22-30); CHLORIDE 102 mmol/L (98-107); GLUCOSE 103 mg/dL (75-110); POTASSIUM 3.9 mmol/L (3.6-5.0)
[2019-05-13 22:16] LABS: ACETAMINOPHEN < 10 ug/mL (10-30); ALCOHOL < 10 mg/dL (NONE DETECTED); SALICYLATE < 1.0 mg/dL (2.0-20.0)
[2019-05-14 07:01] LABS: APPEARANCE,URINE CLOUDY; BILIRUBIN,URINE NEGATIVE (NEGATIVE); GLUCOSE, URINE NEGATIVE (NEGATIVE); KETONES,URINE NEGATIVE (NEGATIVE); LEUKOCYTE ESTERASE,URINE NEGATIVE (NEGATIVE); NITRITE,URINE NEGATIVE (NEGATIVE); PROTEIN,URINE NEGATIVE (NEGATIVE); URINE SPECIFIC GRAVITY 1.017
[2019-05-14 07:04] LABS: COLOR,URINE DARK YELLOW
[2019-05-14 07:12] LABS: URINE AMPHETAMINES SCREEN NEGATIVE; URINE BARBITURATES SCREEN NEGATIVE; URINE COCAINE SCREEN NEGATIVE; URINE MARIJUANA (THC) SCREEN NEGATIVE; URINE METHADONE SCREEN NEGATIVE; URINE PHENCYCLIDINE SCREEN NEGATIVE
[2019-05-14 07:15] LABS: URINE BENZODIAZEPINES SCREEN UNCONFIRMED POSITIVE
[2019-05-14] MEDS ORDERED: CHLORPROMAZINE HCL INJ 25 MG/1 ML AMPULE IM ONE (07:44)
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
[2019-05-14] MEDS ORDERED: CLONIDINE 0.1 MG/24 HR PATCH.TDWK TD ONE (11:42)
[2019-05-14] MEDS ORDERED: BENZTROPINE MESYLATE INJ 2 MG/2 ML AMPULE IM SCH (11:45)
[2019-05-14] MEDS: HALOPERIDOL LACTATE INJ 5 MG/1 ML VIAL IM SCH ×2 (11:49→17:51)
--- NOTE | 2019-05-14 12:34 | EKG REPORT ---
SEVERITY:- BORDERLINE ECG - SINUS RHYTHM PROBABLE LEFT ATRIAL ABNORMALITY : Confirmed by: Naomi Monahan MD 14-May-2019 12:33:30
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
[2019-05-14 17:09] VITALS: BP 120/73
== END 2019-05-14 17:52 ==
LOC: ER 20:52
DX: F31.64 Bipolar disorder, current episode mixed, severe, with psychotic features (principal); F91.9 Conduct disorder, unspecified; D72.829 Elevated white blood cell count, unspecified
CPT/HCPCS: 93005; 99285; 96372; 36415; 80307 ×4; 84703; 85025; 80053; 81001; 93010; J0515; J3230; J1630; J3490

== ENCOUNTER → 2019-09-11 | Outpatient (CLI) | payer MEDICAID ==
--- NOTE | 2019-09-11 11:18 | RADIOLOGY REPORT (SQ) ---
EXAM DESCRIPTION: U/S ABDOMEN COMPLETE W/O DOP IMAGES COMPLETED DATE/TIME: 09/11/2019 11:10 am REASON FOR STUDY: R10.9 UNSPECIFIED ABDOMINAL PAIN R10.9 UNSPECIFIED ABDOMINAL PAIN COMPARISON: None. TECHNIQUE: Dynamic and static grayscale images acquired of the abdomen and recorded on PACS. Additio nal selected color Doppler and spectral images recorded. Note: Study does not meet criteria for complete doppler/duplex scan LIMITATIONS: None. FINDINGS: PANCREAS: No masses. Visualized pancreatic duct normal caliber. LIVER: Fatty infiltration. No focal masses. LIVER VASCULATURE: Normal directional flow of the main portal vein and hepatic veins. GALLBLADDER: No stones. Normal wall thickness. No pericholecystic fluid. ULTRASOUND-DETECTED BARRETT'S SIGN: Negative. INTRAHEPATIC DUCTS AND COMMON DUCT: CBD and intrahepatic ducts normal caliber. No filling defects. INFERIOR VENA CAVA: Normal flow. AORTA: No aneurysm. RIGHT KIDNEY: Normal size. Normal echogenicity. No solid or suspicious masses. No hydronephros is. No calcifications. LEFT KIDNEY: Normal size. Normal echogenicity. No solid or suspicious masses. No hydronephrosi s. No calcifications. SPLEEN: Normal size. No solid masses. PERITONEAL AND PLEURAL SPACES: No ascites or effusions. OTHER: No other significant finding. IMPRESSION: Hepatic steatosis. No other significant findings. TECHNICAL DOCUMENTATION: JOB ID: [id number] 2010 [employer]- All Rights Reserved Reading location - IP/workstation name: [email or web address]
== END ==
LOC: RAD 10:28
PROVIDERS: ATTEND Family Medicine Geriatric Medicine
DX: R10.9 Unspecified abdominal pain (principal)
CPT/HCPCS: 76700

== ENCOUNTER → 2019-09-11 | Outpatient (CLI) | payer MEDICAID ==
[2019-09-11 12:47] LABS: ABSOLUTE BASOPHILS # (AUTO) 0.1 10^3/uL (0.0-0.2); ABSOLUTE EOSINOPHILS # (AUTO) 0.1 10^3/uL (0.0-0.6); ABSOLUTE LYMPHOCYTES (AUTO) 1.9 10^3/uL (0.5-4.7); ABSOLUTE MONOCYTES (AUTO) 0.6 10^3/uL (0.1-1.4); BASOPHILS % (AUTO) 0.8 % (0-2); EOSINOPHILS % (AUTO) 1.9 % (0-6); HEMATOCRIT 37.3 % (36.0-47.0); HEMOGLOBIN 13.1 g/dL (12.0-15.5); LYMPHOCYTES % (AUTO) 24.8 % (13-45); MEAN CORPUSCULAR HEMOGLOBIN 32.7 pg (27.0-33.4); MEAN CORPUSCULAR VOLUME 94 fl (80-97); MONOCYTES % (AUTO) 7.3 % (3-13); PLATELET COUNT 277 10^3/uL (150-450); RED BLOOD COUNT 3.99 10^6/uL (3.72-5.28); RED CELL DISTRIBUTION WIDTH 14.1 % (11.5-14.0); SEGMENTED NEUTROPHILS % (AUTO) 65.2 % (42-78); TOTAL CELLS COUNTED % (AUTO) 100 %; WHITE BLOOD COUNT 7.7 10^3/uL (4.0-10.5)
--- NOTE | 2019-09-11 13:01 | RADIOLOGY REPORT (SQ) ---
EXAM DESCRIPTION: ACUTE ABDOMEN SERIES IMAGES COMPLETED DATE/TIME: 09/11/2019 12:25 pm REASON FOR STUDY: UNSPECIFIED ABDOMINAL PAIN,N/V, SEE ORDER R10.9 UNSPECIFIED ABDOMINAL PAIN E66.3 OVERWEIGHT Z13.1 ENCOUNTER FOR SCREENING FOR DIABETES MELLITUS COMPARISON: None. NUMBER OF VIEWS: Three views. TECHNIQUE: Frontal chest, supine abdomen and upright/decubitus abdomen radiographic images acquired. LIMITATIONS: None. FINDINGS: CHEST: Lungs clear of infiltrates. FREE AIR: None. No abnormal gas collections. BOWEL GAS PATTERN: Nonobstructive pattern. No dilated loops or air fluid levels. CALCIFICATIONS: No suspicious calcifications. HARDWARE: None in the abdomen. SOFT TISSUES: No gross mass or suggestion of organomegaly. BONES: No acute fracture. No worrisome bone lesions. OTHER: No other significant finding. IMPRESSION: NO RADIOGRAPHIC EVIDENCE FOR ACUTE ABDOMINAL DISEASE. TECHNICAL DOCUMENTATION: JOB ID: [id number] 2010 [employer]- All Rights Reserved Reading location - IP/workstation name: [email or web address]
[2019-09-11 13:08] LABS: ALBUMIN 4.3 g/dL (3.5-5.0); ALKALINE PHOSPHATASE 62 U/L (38-126); AMYLASE 43 U/L (30-110); ANION GAP 7 (5-19); ASPARTATE AMINO TRANSFERASE 19 U/L (14-36); BILIRUBIN,TOTAL 0.3 mg/dL (0.2-1.3); BLOOD UREA NITROGEN 13 mg/dL (7-20); CALCIUM 9.5 mg/dL (8.4-10.2); CARBON DIOXIDE 24 mmol/L (22-30); CHLORIDE 104 mmol/L (98-107); CHOLESTEROL 176.01 mg/dL (0-200); GLUCOSE 89 mg/dL (75-110); POTASSIUM 4.4 mmol/L (3.6-5.0); TOTAL PROTEIN 6.8 g/dL (6.3-8.2); TRIGLYCERIDES 77 mg/dL (<150)
[2019-09-11 13:58] LABS: DIRECT LDL 102 mg/dL (<100)
== END ==
LOC: OD 11:53
PROVIDERS: ATTEND Family Medicine Geriatric Medicine
DX: Z13.1 Encounter for screening for diabetes mellitus (principal); Z13.220 Encounter for screening for lipoid disorders; Z13.0 Encounter for screening for diseases of the blood and blood-forming organs and certain disorders involving the immune mechanism; R10.9 Unspecified abdominal pain; E66.3 Overweight; R05 Cough
CPT/HCPCS: 36415; 74022; 80053; 80061; 82150; 83690; 84443; 85025

== ENCOUNTER 2019-11-10 19:00 | Emergency (ER) | payer MEDICAID ==
[2019-11-10 19:25] VITALS: BP 124/81
== END 2019-11-10 21:14 | disposition left against medical advice (07) ==
LOC: ER 19:00
DX: Z53.21 Procedure and treatment not carried out due to patient leaving prior to being seen by health care provider (principal)

== ENCOUNTER 2019-11-11 01:30 | Emergency (ER) | payer MEDICAID ==
--- NOTE | 2019-11-11 01:46 | ER Document Report ---
ED Medical Screen (RME) - General Chief Complaint: Psych Problem Stated Complaint: PSYCH Time Seen by Provider: 11/11/19 01:41 Primary Care Provider: MARTHA MACKEY MD [Primary Care Provider] - Follow up as needed Notes: Patient is a 29-year-old female who presents emergency department with a chief complaint of needing "help" with her drinking. Patient states that she has been drinking a lot in the past few days. States that she does not drink all the time. Exam: Flat affect. I have greeted and performed a rapid initial assessment of this patient. A comprehensive ED assessment and evaluation of the patient, analysis of test results and completion of medical decision making process will be conducted by an additional ED providers. TRAVEL OUTSIDE OF THE [place] IN LAST 30 DAYS: No - Related Data Allergies/Adverse Reactions: No Known Allergies Allergy (Verified 03/22/19 23:51) Past Medical History Renal/ Medical History: Denies: Hx Peritoneal Dialysis - Immunizations Immunizations up to date: Yes Hx Diphtheria, Pertussis, Tetanus Vaccination: Yes Doctor's Discharge - Discharge Referrals: MARTHA MACKEY MD [Primary Care Provider] - Follow up as needed
[2019-11-11 01:57] VITALS: BP 130/82
[2019-11-11 02:34] LABS: ABSOLUTE BASOPHILS # (AUTO) 0.1 10^3/uL (0.0-0.2); ABSOLUTE EOSINOPHILS # (AUTO) 0.2 10^3/uL (0.0-0.6); ABSOLUTE LYMPHOCYTES (AUTO) 2.7 10^3/uL (0.5-4.7); ABSOLUTE MONOCYTES (AUTO) 0.9 10^3/uL (0.1-1.4); ABSOLUTE NEUT (AUTO) 9.5 10^3/uL (1.7-8.2); BASOPHILS % (AUTO) 0.7 % (0-2); EOSINOPHILS % (AUTO) 1.7 % (0-6); MEAN CORPUSCULAR HEMOGLOBIN 33.6 pg (27.0-33.4); MEAN CORPUSCULAR VOLUME 96 fl (80-97); MONOCYTES % (AUTO) 6.9 % (3-13); PLATELET COUNT 242 10^3/uL (150-450); RED BLOOD COUNT 3.86 10^6/uL (3.72-5.28); RED CELL DISTRIBUTION WIDTH 14.2 % (11.5-14.0); SEGMENTED NEUTROPHILS % (AUTO) 70.7 % (42-78); TOTAL CELLS COUNTED % (AUTO) 100 %; WHITE BLOOD COUNT 13.5 10^3/uL (4.0-10.5)
[2019-11-11] MEDS ORDERED: NORMAL SALINE 1000 ML 1,000 ML IV ONE (02:40)
[2019-11-11] MEDS ORDERED: PROMETHAZINE HCL 25 MG TABLET PO ONE (02:41)
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
[2019-11-11 02:53] LABS: ALBUMIN 4.1 g/dL (3.5-5.0); ALKALINE PHOSPHATASE 80 U/L (38-126); ANION GAP 10 (5-19); ASPARTATE AMINO TRANSFERASE 19 U/L (14-36); BILIRUBIN,DIRECT 0.3 mg/dL (0.0-0.4); BILIRUBIN,TOTAL 0.3 mg/dL (0.2-1.3); BLOOD UREA NITROGEN 7 mg/dL (7-20); CALCIUM 9.3 mg/dL (8.4-10.2); CARBON DIOXIDE 23 mmol/L (22-30); CHLORIDE 107 mmol/L (98-107); GLUCOSE 109 mg/dL (75-110); TOTAL PROTEIN 6.4 g/dL (6.3-8.2)
[2019-11-11 02:54] LABS: ACETAMINOPHEN < 10 ug/mL (10-30); ALCOHOL < 10 mg/dL (NONE DETECTED); SALICYLATE < 1.0 mg/dL (2.0-20.0)
--- NOTE | 2019-11-11 17:17 | EKG REPORT ---
SEVERITY:- NORMAL ECG - SINUS RHYTHM : Confirmed by: Randall Mejias 11-Nov-2019 17:17:07
== END 2019-11-11 07:16 | disposition home or self-care (01) ==
LOC: ER 01:30
DX: F10.29 Alcohol dependence with unspecified alcohol-induced disorder (principal); R11.0 Nausea; M54.9 Dorsalgia, unspecified; F17.200 Nicotine dependence, unspecified, uncomplicated; D72.829 Elevated white blood cell count, unspecified
CPT/HCPCS: 93005; 99284; 96360; 96361; 36415; 80307 ×3; 85025; 80053; 93010; J3490; J7030

== ENCOUNTER 2019-11-13 18:54 | Emergency (ER) | payer MEDICAID ==
--- NOTE | 2019-11-13 20:33 | ER Document Report ---
ED Psych Disorder / Suicide - General Chief Complaint: Psych Problem Stated Complaint: PSYCH/MEDICAL COMPLAINT Time Seen by Provider: 11/13/19 20:31 Primary Care Provider: MARTHA MACKEY MD [Primary Care Provider] - Follow up as needed Mode of Arrival: Ambulatory Notes: 29-year-old female presented to ED for mental health problems. She states she does not know what is going on she does not know if she is going to hurt herself she really does not know what is going on she does have a history of bipolar and schizophrenia. She states she is not taking her medicines. She states she does smoke a pack a day and drinks weekly but she does not really know anything else she said. I have greeted and performed a rapid initial assessment of this patient. A comprehensive ED assessment and evaluation of the patient, analysis of test results and completion of medical decision making process will be conducted by an additional ED providers. TRAVEL OUTSIDE OF THE [place] IN LAST 30 DAYS: No - Related Data Allergies/Adverse Reactions: No Known Allergies Allergy (Verified 03/22/19 23:51) Past Medical History - Social History Family History: None, Other Renal/ Medical History: Denies: Hx Peritoneal Dialysis Psychiatric Medical History: Reports: Hx Bipolar Disorder, Hx Schizophrenia - Immunizations Immunizations up to date: Yes Hx Diphtheria, Pertussis, Tetanus Vaccination: Yes Physical Exam - Vital signs Vitals: Temp Pulse Resp BP Pulse Ox 98.1 F 101 H 20 122/75 96 11/13/19 19:02 11/13/19 19:02 11/13/19 19:02 11/13/19 19:02 11/13/19 19:02 Course - Vital Signs Vital signs: Temp Pulse Resp BP Pulse Ox 98.1 F 101 H 20 122/75 96 11/13/19 19:02 11/13/19 19:02 11/13/19 19:02 11/13/19 19:02 11/13/19 19:02 Discharge - Discharge Referrals: MARTHA MACKEY MD [Primary Care Provider] - Follow up as needed
--- NOTE | 2019-11-13 20:36 | ER Document Report ---
ED Medical Screen (RME) - General Chief Complaint: Psych Problem Stated Complaint: PSYCH/MEDICAL COMPLAINT Time Seen by Provider: 11/13/19 20:31 Primary Care Provider: MARTHA MACKEY MD [Primary Care Provider] - Follow up as needed Mode of Arrival: Ambulatory Notes: 29-year-old female presented to ED for mental health problems. She states she does not know what is going on she does not know if she is going to hurt herself she really does not know what is going on she does have a history of bipolar and schizophrenia. She states she is not taking her medicines. She states she does smoke a pack a day and drinks weekly but she does not really know anything else she said. I have greeted and performed a rapid initial assessment of this patient. A comprehensive ED assessment and evaluation of the patient, analysis of test results and completion of medical decision making process will be conducted by an additional ED providers. TRAVEL OUTSIDE OF THE [place] IN LAST 30 DAYS: No - Related Data Allergies/Adverse Reactions: No Known Allergies Allergy (Verified 03/22/19 23:51) Past Medical History Renal/ Medical History: Denies: Hx Peritoneal Dialysis Psychiatric Medical History: Reports: Hx Bipolar Disorder, Hx Schizophrenia - Immunizations Immunizations up to date: Yes Hx Diphtheria, Pertussis, Tetanus Vaccination: Yes Physical Exam - Vital signs Vitals: Temp Pulse Resp BP Pulse Ox 98.1 F 101 H 20 122/75 96 11/13/19 19:02 11/13/19 19:02 11/13/19 19:02 11/13/19 19:02 11/13/19 19:02 Course - Vital Signs Vital signs: Temp Pulse Resp BP Pulse Ox 98.1 F 101 H 20 122/75 96 11/13/19 19:02 11/13/19 19:02 11/13/19 19:02 11/13/19 19:02 11/13/19 19:02 Doctor's Discharge - Discharge Referrals: MARTHA MACKEY MD [Primary Care Provider] - Follow up as needed
[2019-11-13 21:18] LABS: ABSOLUTE BASOPHILS # (AUTO) 0.1 10^3/uL (0.0-0.2); ABSOLUTE EOSINOPHILS # (AUTO) 0.1 10^3/uL (0.0-0.6); ABSOLUTE LYMPHOCYTES (AUTO) 2.3 10^3/uL (0.5-4.7); ABSOLUTE MONOCYTES (AUTO) 0.8 10^3/uL (0.1-1.4); BASOPHILS % (AUTO) 0.7 % (0-2); EOSINOPHILS % (AUTO) 0.7 % (0-6); HEMATOCRIT 38.4 % (36.0-47.0); HEMOGLOBIN 13.2 g/dL (12.0-15.5); LYMPHOCYTES % (AUTO) 18.9 % (13-45); MEAN CORPUSCULAR HEMOGLOBIN 32.6 pg (27.0-33.4); MEAN CORPUSCULAR HGB CONC 34.3 g/dL (32.0-36.0); MEAN CORPUSCULAR VOLUME 95 fl (80-97); MONOCYTES % (AUTO) 6.5 % (3-13); PLATELET COUNT 296 10^3/uL (150-450); RED BLOOD COUNT 4.04 10^6/uL (3.72-5.28); RED CELL DISTRIBUTION WIDTH 14.2 % (11.5-14.0); SEGMENTED NEUTROPHILS % (AUTO) 73.2 % (42-78); TOTAL CELLS COUNTED % (AUTO) 100 %; WHITE BLOOD COUNT 12.3 10^3/uL (4.0-10.5)
[2019-11-13 21:33] LABS: ALBUMIN 4.3 g/dL (3.5-5.0); ALCOHOL 30 mg/dL (NONE DETECTED); ALKALINE PHOSPHATASE 84 U/L (38-126); ANION GAP 11 (5-19); ASPARTATE AMINO TRANSFERASE 21 U/L (14-36); BILIRUBIN,DIRECT 0.3 mg/dL (0.0-0.4); BILIRUBIN,TOTAL 0.3 mg/dL (0.2-1.3); BLOOD UREA NITROGEN 8 mg/dL (7-20); CALCIUM 9.4 mg/dL (8.4-10.2); CARBON DIOXIDE 23 mmol/L (22-30); CHLORIDE 104 mmol/L (98-107); GLUCOSE 79 mg/dL (75-110); TOTAL PROTEIN 6.7 g/dL (6.3-8.2)
[2019-11-13 21:34] LABS: ACETAMINOPHEN < 10 ug/mL (10-30); SALICYLATE < 1.0 mg/dL (2.0-20.0)
--- NOTE | 2019-11-13 21:49 | ER Document Report ---
ED General - General Chief Complaint: Psych Problem Stated Complaint: PSYCH/MEDICAL COMPLAINT Time Seen by Provider: 11/13/19 20:31 Primary Care Provider: MARTHA MACKEY MD [COMMUNITY BASED STAFF] - Follow up as needed Mode of Arrival: Ambulatory TRAVEL OUTSIDE OF THE [place] IN LAST 30 DAYS: No - HPI Notes: Patient is a 29-year-old female with a history of schizophrenia and bipolar disorder who was brought in by EMS for reported "episode". Patient states "I have been unmedicated and need to be in a hospital to be stabilized". She states she has been unmedicated for an unknown amount of time. Patient endorses suicidal ideation but does not have a plan. She does not respond when asked about homicidal ideation. Patient has multiple visits in the last few days. Patient states she continues to binge drink. - Related Data Allergies/Adverse Reactions: No Known Allergies Allergy (Verified 03/22/19 23:51) Past Medical History - General Information source: Patient - Social History Smoking Status: Current Every Day Smoker Frequency of alcohol use: Heavy Family History: None, Other Renal/ Medical History: Denies: Hx Peritoneal Dialysis Psychiatric Medical History: Reports: Hx Bipolar Disorder, Hx Schizophrenia - Immunizations Immunizations up to date: Yes Hx Diphtheria, Pertussis, Tetanus Vaccination: Yes Review of Systems - Review of Systems Constitutional: No symptoms reported EENT: No symptoms reported Cardiovascular: No symptoms reported Respiratory: No symptoms reported Gastrointestinal: No symptoms reported Genitourinary: No symptoms reported Female Genitourinary: No symptoms reported Musculoskeletal: No symptoms reported Skin: No symptoms reported Hematologic/Lymphatic: No symptoms reported Neurological/Psychological: See HPI Physical Exam - Vital signs Vitals: Temp Pulse Resp BP Pulse Ox 98.1 F 101 H 20 122/75 96 11/13/19 19:02 11/13/19 19:02 11/13/19 19:02 11/13/19 19:02 11/13/19 19:02 - Notes Notes: PHYSICAL EXAMINATION: VITALS: Vitals reviewed and within normal limits. GENERAL: Well-nourished and in no acute distress. HEAD: Atraumatic, normocephalic. EYES: Pupils equal round and reactive to light, extraocular movements intact, sclera anicteric, conjunctiva are normal. ENT: Nares patent. Moist mucous membranes. LUNGS: Breath sounds clear to auscultation bilaterally and equal. No wheezes rales or rhonchi. HEART: Regular rate and rhythm without murmurs. ABDOMEN: Soft, nontender, normoactive bowel sounds. No guarding, no rebound. No masses appreciated. EXTREMITIES: Normal range of motion, no pitting or edema. No cyanosis. NEUROLOGICAL: No focal neurological deficits. Moves all extremities spontaneously and on command. PSYCH: Flat affect. Does not respond to all questions but when she does it is appropriate. Normal speech. SKIN: Warm, Dry, normal turgor, no rashes or lesions noted. Course - Re-evaluation Re-evalutation: Patient is a 29 y/o female with a hx of schizophrenia and bipolar disorder. She has been unmedicated for an unknown amount of time. She endorses suicidal ideation with no plan. She has multiple visits to the ED in the last few days. WBC mildly elevated at 12.3 and serum alcohol of 30. Labwork is otherwise negative. Based on her suicidal ideation, multiple ED visits and her medication noncompliance patient is being placed on an IVC hold. IVC papers completed. Patient is medically cleared pending evaluation by the mental health team. - Vital Signs Vital signs: Temp Pulse Resp BP Pulse Ox 98.1 F 101 H 20 122/75 96 11/13/19 19:02 11/13/19 19:02 11/13/19 19:02 11/13/19 19:02 11/13/19 19:02 - Laboratory Result Diagrams: 11/13/19 20:55 11/13/19 20:55 Laboratory results interpreted by me: 11/13/19 11/13/19 20:55 20:55 WBC 12.3 H RDW 14.2 H Absolute Neuts (auto) 9.0 H Salicylates < 1.0 L Acetaminophen < 10 L - EKG Interpretation by Me Additional EKG results interpreted by me: Sinus rhythm with a rate of 98. QTc 445. Normal axis. No T wave inversions or ST segment changes in consecutive leads. Discharge - Discharge Clinical Impression: Suicidal ideation Schizophrenia Qualifiers: Schizophrenia type: unspecified Qualified Code(s): F20.9 - Schizophrenia, unspecified Condition: Stable Disposition: PSYCH HOSP/UNIT Referrals: MARTHA MACKEY MD [COMMUNITY BASED STAFF] - Follow up as needed
--- NOTE | 2019-11-14 08:36 | EKG REPORT ---
SEVERITY:- BORDERLINE ECG - SINUS RHYTHM PROBABLE LEFT ATRIAL ABNORMALITY : Confirmed by: Naomi Monahan MD 14-Nov-2019 08:35:48
[2019-11-14 11:37] LABS: APPEARANCE,URINE CLEAR; BILIRUBIN,URINE NEGATIVE (NEGATIVE); COLOR,URINE YELLOW; GLUCOSE, URINE NEGATIVE (NEGATIVE); KETONES,URINE NEGATIVE (NEGATIVE); LEUKOCYTE ESTERASE,URINE NEGATIVE (NEGATIVE); NITRITE,URINE NEGATIVE (NEGATIVE); PROTEIN,URINE NEGATIVE (NEGATIVE); URINE SPECIFIC GRAVITY 1.013; UROBILINOGEN,URINE NEGATIVE mg/dL (<2.0)
[2019-11-14 12:01] LABS: URINE AMPHETAMINES SCREEN NEGATIVE; URINE BARBITURATES SCREEN NEGATIVE; URINE BENZODIAZEPINES SCREEN NEGATIVE; URINE COCAINE SCREEN NEGATIVE; URINE MARIJUANA (THC) SCREEN NEGATIVE; URINE METHADONE SCREEN NEGATIVE; URINE PHENCYCLIDINE SCREEN NEGATIVE
--- NOTE | 2019-11-14 13:28 | ER Document Report ---
Doctor's Note Notes: 11/14/19 13:27 Patient's records were reviewed. History of schizophrenia off of medications. Patient is an IVC. Her lab work was reviewed and does not show acute abnormalities. Patient does not yes or no but is otherwise not extremely verbal, poor historian, awaiting psychiatric evaluation, recommendations for plan of care and medication recommendations
[2019-11-14] MEDS ORDERED: LORAZEPAM 0.5 MG TABLET PO ONE (17:19)
[2019-11-14] MEDS: HALOPERIDOL 5 MG TABLET PO SCH (20:52)
[2019-11-15] MEDS: HALOPERIDOL 5 MG TABLET PO SCH (10:16)
[2019-11-15 12:08] VITALS: BP 118/68
--- NOTE | 2019-11-15 18:29 | PSYCHOLOGICAL NOTE ---
Psych Note - Psych Note Date seen by psych provider: 11/15/19 Time seen by psych provider: 10:40 Psych Note: Patient refuses consent for her mother Check in conducted with patient: Patient stated she has been feeling bad and does not feel safe where she lives. Patient disclosed her mother is going out of town and is trying to coordinate for the patient to stay with her father. She stated that it might not happen until tomorrow. Eye contact is fair. Conversational speech is baseline for this patient ie quite but easily understood, short pauses between responding to questions. Medication recommendations per [facility]'s contracted psychiatrist are as follows: Haldol 2.5mg twice daily Impression/plan: Patient is cleared from acute psychiatric services. Patient is well known to this clinician and department. Patient typically presents selectively mute and needs inpatient psychiatric treatment. Patient is currently presenting at baseline ie talking with clinician and making fair eye contact. Patient is encouraged to continued taking her medications. Patient has been started on medication and will be provided a prescription. Patient has family in the local area and lives with her mother. Patient is encouraged to include her mother in plan of care; unfortunately, she refuses consent. Patient is recommended to follow up with [facility]. APS and Community collections clerk have been contacted by the behavioral health team; a referral for [facility] has been submitted to further assist the patient out in the community. The patient has been provided local resource list of area providers, mobile crisis contact, and economic assistance resources. Patient declined needing assistance with transportation. Dr. Su was consulted on the care and management of this patient; attending physician is in agreement with recommendations and disposition.
--- NOTE | 2019-11-17 09:03 | PSYCHOLOGICAL NOTE ---
Psych Note - Psych Note Date seen by psych provider: 11/14/19 Time seen by psych provider: 12:22 - Evaluation with patient from [id number] and ongoing. Also mother returned patient's called and allowed them to talk. Psych Note: Patient is a 29 year old female who presented to the Emergency Department last evening via privately owned vehicle for history of schizophrenia and bipolar, being off her medications, not knowing what's going on, didn't know if she was going to hurt herself and would not talk. Medical documentation noted patient sitting in chair, head down, no eye contact. Patient was put on a 24 Hour Petition For Evaluation. She had presented to the Emergency Department 11/10/2019 and 11/11/2019 so this made third visit in less than a week. Patient reported "not too great" when asked how she was doing. She stated she did not go to [facility] and commented "it is not an alcohol issue." She was made aware [facility] is for both substance abuse and mental health. She later identified she had been to [facility] previously and did not like the experience. When asked about suicidal ideation she commented "I thought I already answered that." She was informed she had but not with this provider and sometimes thoughts/feelings change. Patient seemed to start to shut down as she was no longer even answering with her close ended responses. Finally she reported "I don't know, I just know I'm having an episode." When asked how she knows she's having an episode/what's going on she did not answer. She denied outpatient follow up. Patient reported "not really, I need to figure something out" when asked if she has a place to stay. Patient was alert and oriented to self, person, place, time and situation. Mood was depressed with flat affect. She denied current homicidal ideation and when asked about suicidal ideation said I don't know I just know I'm having an episode but could not explain how she knew. Patient did not appear to be responding to internal stimuli as evidenced by answering questions appropriately when addressed, though close ended responses, however then she shut down and stopped talking. Thought processes were linear and organized. Conversational speech was within normal limits for rate, tone and prosody. Intellectual abili ties are estimated to be average. Insight, judgment and impulse control were fair to poor as evidenced by at first answering questions then shutting down so being vague and poor historian. Chart review revealed patient has had numerous Emergency Department visits (10) for behavioral health since 2017. She has typically been put on Zyprexa 10MG twice a day and Cogentin 1MG daily. Twice ([place], [place]) in 2019 patient was sent to inpatient psychiatric hospitalization. Mother returned call. Allowed patient and mother to talk. Patient stated mother was going out of town. Reached out to both Adult Protective Services (APS) and [facility] ([facility]) to inquire about any involvement by either and both denied. Clinical Presentation: Depressed Mood with Flat Affect Homelessness History of at least Bipolar and noncompliance with medication/treatment Medication recommendations made by the psychiatric medication provider Dr. Joie DON., includes: Add Haldol 2.5MG twice a day for calming effect/anxiety/sleep Impression/Plan: Recommendation to maintain 24 Hour Petition for Evaluation, hold overnight, administer medication regimen to aid with symptom management (anxiety/calming effect/sleep) especially since patient reported being off medications, allow 24 Hour Petition for evaluation to and discharge in the morning. By the time obtained information from APS and CP it was late/dark out. Want to have a solid discharge plan and have most of the day for patient to come up with plans for living arrangements. Also patient presented depressed with flat affect, was vague and poor historian, and did not wish to utilize [facility] given previous negative experience. Consulted with Dr. Su regarding the management and care of patient. ED Physician in agreement with recommendations.
== END 2019-11-15 12:51 | disposition home or self-care (01) ==
LOC: ER 18:54
DX: Z04.6 Encounter for general psychiatric examination, requested by authority (principal); F20.9 Schizophrenia, unspecified; R45.851 Suicidal ideations; F17.200 Nicotine dependence, unspecified, uncomplicated; D72.829 Elevated white blood cell count, unspecified; Z59.0 Homelessness
CPT/HCPCS: 93005; 99285; 36415; 80307 ×4; 85025; 80053; 81001; 93010; J3490 ×2

== ENCOUNTER 2019-11-29 15:49 | Emergency (ER) | payer MEDICAID ==
--- NOTE | 2019-11-29 16:12 | ER Document Report ---
ED Medical Screen (RME) - General Chief Complaint: Abscess Stated Complaint: ABSCESS/VAGINAL AREA Time Seen by Provider: 11/29/19 16:10 Mode of Arrival: Ambulatory Information source: Patient Notes: 29-year-old female presents to ED for complaint of very large painful abscesses to the bilateral groin. She states the right 1 is much bigger than the left but she needs both of them looked at. She states the right 1 is been there for about a year but is much worse for the last 4 days. She states is a level 2 pain throbbing sharp and at times aching. She states she is down from 2 packs to 1 pack/day of cigarettes drinks weekly. She states she has had cysts before that been I&D but mostly she comes in for mental health issues. She states her last menstrual cycle was on 06 November. I have greeted and performed a rapid initial assessment of this patient. A comprehensive ED assessment and evaluation of the patient, analysis of test results and completion of medical decision making process will be conducted by an additional ED providers. TRAVEL OUTSIDE OF THE [place] IN LAST 30 DAYS: No - Related Data Allergies/Adverse Reactions: No Known Allergies Allergy (Verified 03/22/19 23:51) Home Medications: mental health issues Past Medical History - Social History Chew tobacco use (# tins/day): No Frequency of alcohol use: Social Drug Abuse: None Renal/ Medical History: Denies: Hx Peritoneal Dialysis Psychiatric Medical History: Reports: Hx Bipolar Disorder, Hx Schizophrenia - Immunizations Immunizations up to date: Yes Hx Diphtheria, Pertussis, Tetanus Vaccination: Yes Physical Exam - Vital signs Vitals: Temp Pulse Resp BP Pulse Ox 98.5 F 118 H 16 116/77 96 11/29/19 15:56 11/29/19 15:56 11/29/19 15:56 11/29/19 15:56 11/29/19 15:56 Course - Vital Signs Vital signs: Temp Pulse Resp BP Pulse Ox 98.5 F 118 H 16 116/77 96 11/29/19 16:04 11/29/19 15:56 11/29/19 15:56 11/29/19 15:56 11/29/19 15:56
[2019-11-29] MEDS ORDERED: IBUPROFEN 800 MG TABLET PO ONE (21:12)
[2019-11-29] MEDS ORDERED: LIDOCAINE 1% INJ-PF (10 MG/ML) 30 ML SDV INJ ONE (21:52)
--- NOTE | 2019-11-29 21:57 | ER Document Report ---
ED Skin Rash/Insect Bite/Abscs - General Chief Complaint: Abscess Stated Complaint: ABSCESS/VAGINAL AREA Time Seen by Provider: 11/29/19 16:10 Primary Care Provider: PEDRO DAVIDSON MD [ACTIVE STAFF] - Follow up as needed MAYELIN MACKEY MD [Primary Care Provider] - Follow up as needed Mode of Arrival: Ambulatory Notes: 29-year-old female presents to the emergency room complaining of an abscess to the right groin area states has had it off-and-on for the past year has gotten progressively worse over the past week. Has tried warm soaks and ibuprofen without relief. She denies any fevers. No trauma or injury. History of previous abscesses that it had to be drained. She denies any history of MRSA. She denies any chance of . TRAVEL OUTSIDE OF THE [place] IN LAST 30 DAYS: No - Related Data Allergies/Adverse Reactions: No Known Allergies Allergy (Verified 03/22/19 23:51) Home Medications: mental health issues Past Medical History - General Information source: Patient - Social History Smoking Status: Current Every Day Smoker Chew tobacco use (# tins/day): No Frequency of alcohol use: Social Drug Abuse: None Family History: None, Other Patient has homicidal ideation: No Renal/ Medical History: Denies: Hx Peritoneal Dialysis Psychiatric Medical History: Reports: Hx Bipolar Disorder, Hx Schizophrenia - Immunizations Immunizations up to date: Yes Hx Diphtheria, Pertussis, Tetanus Vaccination: Yes Review of Systems - Review of Systems Constitutional: No symptoms reported Cardiovascular: No symptoms reported Respiratory: No symptoms reported Musculoskeletal: No symptoms reported Skin: Other - Abscess Neurological/Psychological: No symptoms reported -: Yes All other systems reviewed and negative Physical Exam - Vital signs Vitals: Temp Pulse Resp BP Pulse Ox 98.5 F 118 H 16 116/77 96 11/29/19 15:56 11/29/19 15:56 11/29/19 15:56 11/29/19 15:56 11/29/19 15:56 - General General appearance: Appears well, Alert In distress: Mild - Respiratory Respiratory status: No respiratory distress Chest status: Nontender Breath sounds: Normal Chest palpation: Normal - Cardiovascular Rhythm: Tachycardia Heart sounds: Normal auscultation Murmur: No - Abdominal Inspection: Normal Distension: No distension Bowel sounds: Normal Tenderness: Nontender Organomegaly: No organomegaly - Neurological Neuro grossly intact: Yes Cognition: Normal Orientation: AAOx4 Giovanni Coma Scale Eye Opening: Spontaneous Giovanni Coma Scale Verbal: Oriented Giovanni Coma Scale Motor: Obeys Commands [place] Coma Scale Total: 15 Speech: Normal Motor strength normal: LUE, RUE, LLE, RLE Sensory: Normal - Skin Skin Temperature: Warm Skin Moisture: Dry Skin Color: Erythema Skin irregularity: Abscess Location of irregularity: Other - Right groin Character of irregularity: Other - 3 cm fluctuant abscess to the right groin area that is tender to palpation. Not warm to the touch. No active discharge or draining noted. Irregularity with: Swelling, Tenderness Course - Re-evaluation Re-evalutation: 11/29/19 22:18 Abscess was prepped and drained as documented. Patient tolerated well. Dressing applied. By nursing staff as documented. Patient was counseled on hot compresses 20 minutes 3 times a day. Packing to be removed in 48 hours. Antibiotics and ibuprofen as prescribed. Outpatient follow-up with [facility] as discussed. On-call physician was provided. Patient was given strict return to the emergency room guidelines. Return for any new or worsening symptoms. All questions were answered. Patient verbalized understanding and agrees with plan of care. - Vital Signs Vital signs: Temp Pulse Resp BP Pulse Ox 97.9 F 86 16 116/74 100 11/29/19 22:30 11/29/19 22:30 11/29/19 22:30 11/29/19 22:30 11/29/19 22:30 Procedures - Incision and Drainage Right Groin Time completed: 22:17 Type: Simple Anesthetic type: 1% Lidocaine mL's of anesthetic: 3 Blade size: 11 I&D procedure: Betadine prep applied, Iodoform packing placed Incision Method: Incision made by scalpel Amount/type of drainage: moderate amount of pus and blood Discharge - Discharge Clinical Impression: Abscess of right groin Condition: Stable Disposition: HOME, SELF-CARE Instructions: Abscess ([facility]), Post Incision and Drainage Additional Instructions: Warm compresses 20 minutes 3 times a day. Packing removal in 48 hours. Antibiotics and ibuprofen as prescribed. Return to the emergency room for any new or worsening symptoms. Prescriptions: Clindamycin HCl 300 mg PO QID #40 capsule Ibuprofen [Ibu] 800 mg PO TID #30 tablet Referrals: MAYELIN MACKEY MD [Primary Care Provider] - Follow up as needed PEDRO DAVIDSON MD [ACTIVE STAFF] - Follow up as needed
[2019-11-29] MEDS ORDERED: CLINDAMYCIN HCL 150 MG CAPSULE PO ONE (22:16)
[2019-11-29 23:11] VITALS: BP 116/74
== END 2019-11-29 22:30 | disposition home or self-care (01) ==
LOC: ER 15:49
DX: L02.214 Cutaneous abscess of groin (principal); F17.200 Nicotine dependence, unspecified, uncomplicated
CPT/HCPCS: 99283; 10060; J3490 ×2